=== PATIENT | female | born 1960 | race Caucasian/White ===

== ENCOUNTER → 2019-12-21 16:03 | Outpatient (BNVA) | payer SELFPAY | PROVIDERS: Visit Provider Counselor Professional | DX: F33.2 Major depressive disorder, recurrent severe without psychotic features (principal); F41.1 Generalized anxiety disorder; F43.12 Post-traumatic stress disorder, chronic | CPT/HCPCS: 90832 ==

== ENCOUNTER → 2020-08-15 10:58 | Outpatient (BNVA) | payer SELFPAY | PROVIDERS: Referring Provider Psychiatry & Neurology Psychiatry; Visit Provider Psychiatry & Neurology Psychiatry | DX: Z00.00 Encounter for general adult medical examination without abnormal findings (principal) | CPT/HCPCS: 80061; 83036 ==

== ENCOUNTER → 2022-09-16 10:16 | Outpatient (BNVA) | payer SELFPAY ==
[2020-09-22 13:27] VITALS: BP 127/82; BMI 26.6
== END ==
PROVIDERS: PCP Family Medicine; Referring Provider Physician Assistant; Visit Provider Nurse Practitioner Family
DX: M19.012 Primary osteoarthritis, left shoulder (principal)
CPT/HCPCS: 73030

== ENCOUNTER → 2023-01-10 12:38 | Outpatient (BNVA) | payer OTHER, SELFPAY ==
[2020-09-22 13:27] VITALS: BP 127/82; BMI 26.6
== END ==
PROVIDERS: PCP Family Medicine; Referring Provider Psychiatry & Neurology Psychiatry; Visit Provider Psychiatry & Neurology Psychiatry
DX: F33.2 Major depressive disorder, recurrent severe without psychotic features (principal); Z79.899 Other long term (current) drug therapy
CPT/HCPCS: 80061; 83036

== ENCOUNTER → 2024-04-06 10:42 | Outpatient (BNVA) | payer OTHER, SELFPAY ==
[2023-11-03 12:39] VITALS: BP 127/85; BMI 29.8
== END ==
PROVIDERS: PCP Family Medicine; Visit Provider Psychiatry & Neurology Psychiatry
DX: Z79.899 Other long term (current) drug therapy (principal)
CPT/HCPCS: 80053; 80061; 83036; 84443; 85025